=== PATIENT | female | born 1970 | race Caucasian/White ===

== ENCOUNTER 2023-02-25 14:41 | Emergency (ER) | payer MEDICAID ==
[~2023-02-25] VITALS: Ht 157.5 cm; Wt 70.3 kg
[2023-02-25 15:07] VITALS: BP 120/72
--- NOTE | 2023-02-25 15:30 | NUR ---
52/F WALKED IN C/O RUQ PAIN X 2 DAYS ACCOMPANIED BY NAUSEA. DENIES VOMITING OR DIARRHEA. PMH: DENIES
[2023-02-25 16:08] LABS: BASOPHILS # (AUTO) 0.1 K/uL (0.00-0.22); EOSINOPHILS # (AUTO) 0.3 K/uL (0-0.4); EOSINOPHILS % (AUTO) 4.2 % (0.0-4.0); HEMATOCRIT 34.3 % (36-48); HEMOGLOBIN 11.7 g/dL (12.0-16.0); LYMPHOCYTES # (AUTO) 2.1 K/uL (2.5-16.5); LYMPHOCYTES % (AUTO) 32.3 % (20.5-51.1); MEAN CORPUSCULAR HEMOGLOBIN 31 pg (27-31); MEAN CORPUSCULAR HGB CONC 34 g/dL (33-37); MEAN CORPUSCULAR VOLUME 90.9 fL (80-94); MONOCYTES # (AUTO) 0.5 K/uL (0.8-1.0); MONOCYTES % (AUTO) 7.2 % (1.7-9.3); NEUTROPHILS # (AUTO) 3.5 K/uL (1.8-7.7); NEUTROPHILS % (AUTO) 55.3 % (42.2-75.2); PLATELET COUNT (AUTO) 289 K/uL (140-450); RED BLOOD CELL COUNT(AUTO) 3.77 MIL/uL (4.20-5.40); RED CELL DISTRIBUTION WIDTH 12.9 % (11.6-13.7); WHITE BLOOD COUNT (AUTO) 6.4 K/uL (4.8-10.8)
[2023-02-25 16:35] LABS: CARBON DIOXIDE 30.1 mmol/L (21-32); CREATININE 0.7 mg/dL (0.6-1.3); POTASSIUM 4.1 mmol/L (3.5-5.1); TOTAL BILIRUBIN 0.6 mg/dL (0.0-1.0)
[2023-02-25] MEDS ORDERED: KETOROLAC 60 MG/2 ML VIAL IM ONE (17:31)
[2023-02-25] MEDS: KETOROLAC 60 MG/2 ML VIAL IM ONE (17:36)
[2023-02-25 17:48] LABS: APPEARANCE,URINE CLEAR (CLEAR); BILIRUBIN,URINE NEGATIVE (NEGATIVE); BLOOD, URINE NEGATIVE (NEGATIVE); COLOR,URINE YELLOW (YELLOW); LEUKOCYTE ESTERASE ,URINE 1+ (NEGATIVE); NITRITE, URINE NEGATIVE (NEGATIVE); UGLUCOSE NEGATIVE (NEGATIVE)
[2023-02-25 18:00] LABS: RBC,URINE 0-5 /HPF (0-5)
[2023-02-25] MEDS ORDERED: CIPR500T4 PO (18:22)
[2023-02-25] MEDS ORDERED: ONDA8TAB87 PO (18:22)
[2023-02-25] MEDS ORDERED: ACET-8905 PO (18:22)
[2023-02-25] MEDS ORDERED: IBUP-2213 PO (18:22)
[2023-02-25 18:40] VITALS: BP 116/63
== END 2023-02-25 18:04 | disposition home or self-care (01) ==
LOC: MED 14:41
DX: N39.0 Urinary tract infection, site not specified (principal); K80.20 Calculus of gallbladder without cholecystitis without obstruction; F17.200 Nicotine dependence, unspecified, uncomplicated; Z90.49 Acquired absence of other specified parts of digestive tract
CPT/HCPCS: 36415; 76705; 80053; 81001; 83690; 85025; 87086; 96372; 99285; J1885; Q0092

== ENCOUNTER 2024-05-22 13:15 | Emergency (ER) | payer MEDICAID, OTHER ==
[~2024-05-22] VITALS: Ht 157.5 cm; Wt 73.5 kg
[~2024-05-22 13:15] MED LIST: ACET-8905 PO; CIPR500T4 PO; IBUP-2213 PO; ONDA8TAB87 PO
[2024-05-22 13:16] VITALS: BP 152/61; PULSE 71; RESP 18; TEMP 97.3; O2SAT 99
[2024-05-22 14:12] LABS: ANION GAP 13.6 (8-16); CALCIUM 8.6 mg/dL (8.5-10.1); CARBON DIOXIDE 27.2 mmol/L (21-32); CREATININE 0.7 mg/dL (0.6-1.3); POTASSIUM 3.8 mmol/L (3.5-5.1)
[2024-05-22 14:42] LABS: BASOPHILS # (AUTO) 0.1 K/uL (0.00-0.22); BASOPHILS % (AUTO) 0.9 % (0.0-2.0); EOSINOPHILS # (AUTO) 0.3 K/uL (0-0.4); EOSINOPHILS % (AUTO) 4.1 % (0.0-4.0); HEMATOCRIT 35.6 % (36-48); LYMPHOCYTES # (AUTO) 2.6 K/uL (2.5-16.5); LYMPHOCYTES % (AUTO) 38.1 % (20.5-51.1); MEAN CORPUSCULAR HEMOGLOBIN 31 pg (27-31); MEAN CORPUSCULAR HGB CONC 34 g/dL (33-37); MONOCYTES # (AUTO) 0.6 K/uL (0.8-1.0); NEUTROPHILS # (AUTO) 3.4 K/uL (1.8-7.7); NEUTROPHILS % (AUTO) 48.9 % (42.2-75.2); PLATELET COUNT (AUTO) 304 K/uL (140-450); RED BLOOD CELL COUNT(AUTO) 3.87 MIL/uL (4.20-5.40); RED CELL DISTRIBUTION WIDTH 13.2 % (11.6-13.7); WHITE BLOOD COUNT (AUTO) 6.9 K/uL (4.8-10.8)
[2024-05-22 17:18] VITALS: BP 127/71; PULSE 71; RESP 18; TEMP 97.3; O2SAT 98
== END 2024-05-22 17:18 | disposition home or self-care (01) ==
LOC: MED 13:15
DX: R07.9 Chest pain, unspecified (principal); R06.02 Shortness of breath; Z79.1 Long term (current) use of non-steroidal anti-inflammatories (NSAID); Z79.2 Long term (current) use of antibiotics
CPT/HCPCS: 36415; 71045; 80048; 83880; 84484; 85025; 93005; 99285; Q0092

== ENCOUNTER 2024-08-08 17:14 | Emergency (ER) | payer OTHER ==
[~2024-08-08] VITALS: Ht 162.6 cm; Wt 72.6 kg
[2024-08-08 17:38] VITALS: BP 116/66; PULSE 60; RESP 20; TEMP 98.1; O2SAT 100
[2024-08-08] MEDS ORDERED: LIDO76.56 TP (20:19)
[2024-08-08] MEDS ORDERED: IBUP-2213 PO (20:19)
== END 2024-08-08 20:34 | disposition home or self-care (01) ==
LOC: MED 17:14
DX: M25.512 Pain in left shoulder (principal); M25.511 Pain in right shoulder; K21.9 Gastro-esophageal reflux disease without esophagitis; Z90.49 Acquired absence of other specified parts of digestive tract; Z98.51 Tubal ligation status; Z79.899 Other long term (current) drug therapy
CPT/HCPCS: 99282